=== PATIENT | female | born 1980 | race Caucasian/White ===

== ENCOUNTER → 2019-03-01 | Outpatient (CLI) | payer BC, OTHER ==
--- NOTE | 2019-03-01 17:38 | REP ---
Clinical: Decreased breath sounds. Dyspnea . Comparison: None . Technique: PA and lateral. Findings: The mediastinum and cardiac silhouette are normal. The lung villatoro are clear and without acute consolidation, effusion, or pneumothorax. The skeletal structures are intact and normal. Impression: 1. No acute cardiopulmonary process. Electronically Signed by Milton Thurman MD 03/01/2019 05:29 P
== END ==
LOC: M LRY 17:11
PROVIDERS: ATTEND Nurse Practitioner Family
DX: R09.89 Other specified symptoms and signs involving the circulatory and respiratory systems (principal)

== ENCOUNTER → 2019-03-01 | Outpatient (REF) | payer OTHER | LOC: M SFHCLERA 17:28 | PROVIDERS: ATTEND Nurse Practitioner Family | DX: J02.9 Acute pharyngitis, unspecified (principal) ==

== ENCOUNTER → 2019-10-17 | Emergency (ER) | payer BC, OTHER | END | disposition home or self-care (01) | LOC: M ED 23:55 | DX: R13.12 Dysphagia, oropharyngeal phase (principal); S00.562A Insect bite (nonvenomous) of oral cavity, initial encounter; X58.XXXA Exposure to other specified factors, initial encounter; Y92.9 Unspecified place or not applicable; Y93.89 Activity, other specified; Y99.9 Unspecified external cause status ==

== ENCOUNTER → 2024-12-31 | Outpatient (CLI) | payer OTHER ==
[2024-12-31 14:34] LABS: HIV 1&2 SCREEN NEGATIVE (NEGATIVE)
[2024-12-31 14:36] LABS: Trichomonas vaginalis (AMP) NOT DETECTED (NEGATIVE)
[2024-12-31 14:42] LABS: HEPATITIS C VIRUS ABY INDEX < 0.02 INDEX (<0.8)
[2024-12-31 15:00] LABS: GC DNA AMPLIFICATION NEGATIVE (NEGATIVE)
== END ==
LOC: M PLALAB 11:40
PROVIDERS: ATTEND Nurse Practitioner Family
DX: Z11.3 Encounter for screening for infections with a predominantly sexual mode of transmission (principal); Z12.4 Encounter for screening for malignant neoplasm of cervix

== ENCOUNTER → 2024-12-31 | Outpatient (REF) | payer OTHER ==
[2025-01-02 12:57] LABS: HPV APTIMA Not Detected (Not Detected)
== END ==
LOC: M PLALAB 11:30
PROVIDERS: ATTEND Nurse Practitioner Family
DX: Z12.4 Encounter for screening for malignant neoplasm of cervix (principal)
CPT/HCPCS: 87624; G0123